=== PATIENT | female | born 1940 | race Caucasian/White ===

== ENCOUNTER 2017-11-26 08:15 | Day surgery (SDC) | payer MEDICARE, OTHER ==
[~2017-11-26 08:15] MED LIST: ALL DAY ALLERGY10 MG PO; AMIT75; ASPI325EC PO; CONEST.9 PO; Calcium 500 MG1 EACH PO; FISH1000 PO; Felodipine ER10 MG PO; LAVAP17G PO; LEVSOD50 PO; METO100ER PO; METO25ER PO; MONT10T PO; MSM1000 MG PO; Multiple Vitam1 EAC1 PO; Omeprazole20 M1; PRAVASTATIN SOD10 MG PO; Vitamin D2000 UNIT PO
== END 2017-11-26 22:37 | disposition home or self-care (01) ==
LOC: MOI US 08:15 → MOI MAM 08:45 → MOI US 08:45
PROC: 0HBT3ZX Excision of Right Breast, Percutaneous Approach, Diagnostic (ICD-10-PCS; principal; 2017-11-26)
DX: D24.1 Benign neoplasm of right breast (principal)
CPT/HCPCS: 19083; 77065; 88305; A4648

== ENCOUNTER 2018-08-23 10:47 | Day surgery (SDC) | payer MEDICARE, OTHER ==
[~2018-08-23] VITALS: Ht 154.9 cm; Wt 62.4 kg
== END 2018-08-23 12:55 | disposition home or self-care (01) ==
LOC: ORSCSDS 10:47
PROVIDERS: Internal Medicine Gastroenterology
PROC: 0D778ZZ Dilation of Stomach, Pylorus, Via Natural or Artificial Opening Endoscopic (ICD-10-PCS; principal; 2018-08-23 12:30)
PROC: 0D798ZZ Dilation of Duodenum, Via Natural or Artificial Opening Endoscopic (ICD-10-PCS; principal; 2018-08-23 12:30)
DX: K31.5 Obstruction of duodenum (principal); R11.2 Nausea with vomiting, unspecified; R63.4 Abnormal weight loss; R68.81 Early satiety; K26.9 Duodenal ulcer, unspecified as acute or chronic, without hemorrhage or perforation; K21.9 Gastro-esophageal reflux disease without esophagitis; I10 Essential (primary) hypertension; Z87.891 Personal history of nicotine dependence; Z79.899 Other long term (current) drug therapy
CPT/HCPCS: C1726; J7120

== ENCOUNTER 2018-09-06 08:13 | Day surgery (SDC) | payer MEDICARE, OTHER ==
[~2018-09-06] VITALS: Ht 154.9 cm; Wt 63.5 kg
== END 2018-09-06 10:00 | disposition home or self-care (01) ==
LOC: ORSCSDS 08:13
PROVIDERS: Internal Medicine Gastroenterology
PROC: 0D768ZZ Dilation of Stomach, Via Natural or Artificial Opening Endoscopic (ICD-10-PCS; principal; 2018-09-06 09:30)
PROC: 0D798ZZ Dilation of Duodenum, Via Natural or Artificial Opening Endoscopic (ICD-10-PCS; principal; 2018-09-06 09:30)
DX: R11.10 Vomiting, unspecified (principal); K22.2 Esophageal obstruction; K31.5 Obstruction of duodenum; R63.4 Abnormal weight loss; I10 Essential (primary) hypertension; E03.9 Hypothyroidism, unspecified; K21.9 Gastro-esophageal reflux disease without esophagitis; E78.5 Hyperlipidemia, unspecified; Z87.891 Personal history of nicotine dependence; Z79.899 Other long term (current) drug therapy
CPT/HCPCS: C1726

== ENCOUNTER → 2019-03-31 | Outpatient (CLI) | payer MEDICARE, OTHER | END | disposition home or self-care (01) | LOC: LAB SHORT 08:42 → PLD 08:42 | DX: B35.1 Tinea unguium (principal); L60.2 Onychogryphosis | CPT/HCPCS: 88305; 88312 ==

== ENCOUNTER → 2019-07-04 | Outpatient (CLI) | payer MEDICARE, OTHER ==
[~2019-07-04] MED LIST changes: +GABA300 PO; +LEVSOD50; -LEVSOD50 PO
[2019-07-04 14:53] LABS: Adenovirus F 40/41 Not Detected (NOT DETECT); Astrovirus Not Detected (NOT DETECT); Campylobacter Sp Not Detected (NOT DETECT); Cryptosporidium Not Detected (NOT DETECT); Cyclospora Cayetanensis Not Detected (NOT DETECT); E. Coli O157 Not Detected (NOT DETECT); Entamoeba Histolytica Not Detected (NOT DETECT); Enteroaggregative E. coli-EAEC Not Detected (NOT DETECT); Enteropathogenic E. coli-EPEC Not Detected (NOT DETECT); Enterotoxigenic E. coli-ETEC Not Detected (NOT DETECT); Giardia Lamblia Not Detected (NOT DETECT); Norovirus GI/GII Not Detected (NOT DETECT); Plesiomonas Shigelloides Not Detected (NOT DETECT); Rotavirus A Not Detected (NOT DETECT); Salmonella Sp Not Detected (NOT DETECT); Sapovirus Not Detected (NOT DETECT); Shiga Toxin-prod E. coli-STEC Not Detected (NOT DETECT); Shigella/Enteroin E. coli-EIEC Not Detected (NOT DETECT); Vibrio Cholerae Not Detected (NOT DETECT); Vibrio Sp Not Detected (NOT DETECT); Yersinia Enterocolitica Not Detected (NOT DETECT)
== END | disposition home or self-care (01) ==
LOC: LAB 07:15 → LAB SHORT 07:15
PROVIDERS: Internal Medicine Gastroenterology
DX: R19.7 Diarrhea, unspecified (principal)
CPT/HCPCS: 0097U; 83993

== ENCOUNTER 2019-07-21 09:14 | Day surgery (SDC) | payer MEDICARE, OTHER ==
[~2019-07-21] VITALS: Ht 154.9 cm; Wt 62.9 kg
== END 2019-07-21 11:10 | disposition home or self-care (01) ==
LOC: ORSCSDS 09:14
PROVIDERS: Internal Medicine Gastroenterology
PROC: 0DBL8ZX Excision of Transverse Colon, Via Natural or Artificial Opening Endoscopic, Diagnostic (ICD-10-PCS; principal; 2019-07-21 10:45)
PROC: 0DBM8ZX Excision of Descending Colon, Via Natural or Artificial Opening Endoscopic, Diagnostic (ICD-10-PCS; principal; 2019-07-21 10:45)
PROC: 0DBN8ZX Excision of Sigmoid Colon, Via Natural or Artificial Opening Endoscopic, Diagnostic (ICD-10-PCS; principal; 2019-07-21 10:45)
DX: R19.7 Diarrhea, unspecified (principal); D12.2 Benign neoplasm of ascending colon; K52.832 Lymphocytic colitis; K64.8 Other hemorrhoids; K57.30 Diverticulosis of large intestine without perforation or abscess without bleeding; K92.1 Melena; E03.9 Hypothyroidism, unspecified; M79.7 Fibromyalgia; E78.5 Hyperlipidemia, unspecified; I10 Essential (primary) hypertension; Z87.891 Personal history of nicotine dependence; Z79.899 Other long term (current) drug therapy
CPT/HCPCS: 88305; J2704; J7120

== ENCOUNTER 2019-10-02 13:37 | Inpatient (IN) | payer MEDICARE, OTHER ==
[~2019-10-02] VITALS: Ht 154.9 cm; Wt 62.7 kg
[~2019-10-02 13:37] MED LIST changes: -LEVSOD50; +LEVSOD50 PO
--- NOTE | 2019-10-07 06:19 | NUR ---
INTO SDS ADMISSION TO UNIT STARTED. Ambulatory in Day Surgery. Patient confirms NPO status and agrees with scheduled surgery. Lungs clear T/O to Auscultation.
--- NOTE | 2019-10-07 16:33 | NUR ---
POST OP: REPORT RECEIVED FROM EXERCISE EQUIPMENT REPAIR TECHNICIAN LIANE. PT TO UNIT AT ABOUT 1430. UPON ASSESSMENT PT IS DROWSY, BUT ORIENTED, VSS, ANSWERING QUESTIONS, AWAKENS EASILY. SURGICAL SITES WNL, SMALL AMT OOZING FROM X1 LAP SITE, REINFORCED WITH GAUZE AND BANDAIDE. PT REPORTS PAIN IS 7/10, WILL MEDICATE PER EMAR. [employer] ARCHITECT SET UP AND PT RECIEVED BOLUS DOSE OF 25MCG. AT ABOUT 1540 THIS RN IN ROOM TO DO VITAL SIGNS, ASSESSMENT FINDINGS INCLUDED PT SLEEPING, SHALLOW BREATHS, RR AT 10, PT SP02 87% ON 3L. O2 INCREASED TO 5L AND SPO2 REACHED 90%. AT THIS TIME PT WOKEN UP BY THIS RN AND ASKED TO DEEP BREATHE, AND INSTRUCTED ON I.S. USE. PT ALSO BOOSTED UP IN BED AND SITTING MORE UP-RIGHT. WHILE AWAKE SP02 AT 96% ON 5L AND RR 16. DR. CLARK MADE AWARE OF RR WHILE SLEEPING. CONTINUIOUS OXIMETRY ORDERED, WILL CTM.
--- NOTE | 2019-10-07 17:44 | NUR ---
SUMMARY: PT HAS BEEN AWAKE AND ALERT FOR SERVERAL HOURS NOW POST OP, TEXTING FAMILY ON HER PHONE. SEEMS TO BE IN NO ACUTE DISTRESS. REPORTS RECRUITING CONSULTANT MANAGING PAIN WELL. DENIES NAUSEA AND ABLE TO EAT ICE CHIPS. CONTINUING TO MONITOR PT RESPIRATORY STATUS. PT VERY RECEPTIVE TO I.S. INSTRUCTION AND IS USING VERY WELL, ABLE TO WEAN O2 TO 3L. CONTINIOUS OXIMETRY IN PLACE. SP02 IS 90% ON 3L WHILE PT IS AWAKE. NO ACUTE SAFETY CONCERNS AT THIS TIME. WILL CTM AND REPORT TO CALLI RN.
[2019-10-08 04:16] LABS: BASOPHILS ABSOLUTE AUTO 0.07 K/mm3 (0.00-0.23); BASOPHILS PERCENT AUTO 1 % (0-2); EOSINOPHILS ABSOLUTE AUTO 0.02 K/mm3 (0.00-0.68); EOSINOPHILS PERCENT AUTO 0 % (0-6); Hematocrit 36.2 % (33.0-51.0); Hemoglobin 11.6 g/dL (11.5-16.0); IMMATURE GRAN ABSOLUTE AUTO 0.04 K/mm3 (0.00-0.10); IMMATURE GRAN PERCENT AUTO 0 % (0-1); LYMPHOCYTES ABSOLUTE AUTO 1.64 K/mm3 (0.84-5.20); LYMPHOCYTES PERCENT AUTO 14 % (21-46); MONOCYTES ABSOLUTE AUTO 1.75 K/mm3 (0.16-1.47); MONOCYTES PERCENT AUTO 15 % (4-13); Mean Corpuscular HGB 32.5 pg (26.0-34.0); Mean Corpuscular Volume 101 fL (80-100); NEUTROPHILS ABSOLUTE AUTO 8.48 K/mm3 (1.96-9.15); NEUTROPHILS PERCENT AUTO 71 % (41-73); Platelet Count 276 K/mm3 (150-400); RDW Standard Deviation 48.8 fL (35.1-46.3); Red Blood Cell Count 3.57 M/mm3 (3.80-5.20)
[2019-10-08 04:35] LABS: Anion Gap 6 mmol/L (6-16); Blood Urea Nitrogen 9 mg/dL (8-24); Bun/Creatinine Ratio 13.9 (12.0-20.0); CO2, Blood 28 mmol/L (21-32); Calcium, Blood 7.7 mg/dL (8.5-10.1); Chloride, Blood 107 mmol/L (98-108); Creatinine, Blood 0.65 mg/dL (0.40-1.00); Glomerular Filtration Rate >60 (60-); Glucose, Blood 95 mg/dL (70-99); Potassium, Blood 4.1 mmol/L (3.5-5.5); Sodium, Blood 141 mmol/L (136-145)
--- NOTE | 2019-10-08 05:01 | NUR ---
SHIFT SUMMARY: PT POD #1 FOR SIGMOID COLECTOMY. ALEXANDRO WOUND VAC CDI WITH SMALL AMOUNT OF SHADOWING. HUERTAS DRAINING YELLOW URINE. PAIN MANAGED WITH FENTANYL COMMUNITY HEALTH EDUCATOR. PT OUT OF BED WITH ONE MINIMAL ASSIST AND FWW. SMALL AMOUNT OF BLOOD PER RECTUM THIS SHIFT. PINK IN COLOR WITHOUT CLOTS. IV ABX AND FLUIDS INFUSING PER EMAR. PT ON 3LO2 VIA NC. PT DESATING IN 80'S WITHOUT O2. ALL OTHER VS WNL.
--- NOTE | 2019-10-08 11:23 | NUR ---
Pt had been up in the chair, had a couple of bathroom visits and stated to us that she was not feeling great and wanted back to bed. Pt following instructions of P.T. well with her movements. Her IV began leaking, new site obtained after she was back in bed. Medicated for pain, binder loosened per patient request. Pt currently visiting on the phone.
--- NOTE | 2019-10-08 18:21 | NUR ---
SUMMARY VOIDING CLEAR YELLOW URINE. PAIN CONTROLLED WITH PO MEDS. VINCENT CLEAR LIQUIDS WITHOUT NAUSEA.
[2019-10-09 03:54] LABS: BASOPHILS ABSOLUTE AUTO 0.08 K/mm3 (0.00-0.23); BASOPHILS PERCENT AUTO 1 % (0-2); EOSINOPHILS ABSOLUTE AUTO 0.68 K/mm3 (0.00-0.68); EOSINOPHILS PERCENT AUTO 7 % (0-6); Hematocrit 37.6 % (33.0-51.0); IMMATURE GRAN ABSOLUTE AUTO 0.03 K/mm3 (0.00-0.10); IMMATURE GRAN PERCENT AUTO 0 % (0-1); LYMPHOCYTES ABSOLUTE AUTO 1.71 K/mm3 (0.84-5.20); LYMPHOCYTES PERCENT AUTO 17 % (21-46); MONOCYTES ABSOLUTE AUTO 1.28 K/mm3 (0.16-1.47); MONOCYTES PERCENT AUTO 13 % (4-13); Mean Corpuscular HGB 32.6 pg (26.0-34.0); Mean Corpuscular HGB Conc 31.9 g/dL (31.5-36.5); Mean Corpuscular Volume 102 fL (80-100); NEUTROPHILS ABSOLUTE AUTO 6.05 K/mm3 (1.96-9.15); NEUTROPHILS PERCENT AUTO 62 % (41-73); Platelet Count 289 K/mm3 (150-400); RDW Standard Deviation 49.1 fL (35.1-46.3); Red Blood Cell Count 3.68 M/mm3 (3.80-5.20); White Blood Cell Count 9.83 K/mm3 (4.00-11.30)
[2019-10-09 04:23] LABS: Anion Gap 5 mmol/L (6-16); Blood Urea Nitrogen 7 mg/dL (8-24); Bun/Creatinine Ratio 10.4 (12.0-20.0); CO2, Blood 31 mmol/L (21-32); Chloride, Blood 105 mmol/L (98-108); Creatinine, Blood 0.68 mg/dL (0.40-1.00); Glomerular Filtration Rate >60 (60-); Glucose, Blood 93 mg/dL (70-99); Potassium, Blood 3.3 mmol/L (3.5-5.5); Sodium, Blood 141 mmol/L (136-145)
--- NOTE | 2019-10-09 05:41 | NUR ---
SHIFT SUMMARY: SURAJ IS A&O X 4. SHE REPORTS ADEQUATE PAIN CONTROL WITH FENTANYL AND APAP. SHE STATES THAT THE FENTANYL CAUSES "WEIRD DREAMS". FWW TO THE BATHROOM, STANDBY ASSIST. O2 @ 2 LPM VIA NC D/T DESATURATION TO 88% WHEN SLEEPING, SATS MAINTAINED ABOVE 92% WITH SUPPLEMENTAL OXYGEN. SHE IS TOLERATING CLEAR LIQUIDS WELL, DENIES NAUSEA. STATES THAT SHE HAS PASSED A SMALL AMOUNT OF FLATUS AND SMEAR OF STOOL. SHE IS ABLE TO MAKE HER NEEDS KNOWN. CONTINUOUS BIOX IN PLACE. VSS. NO ACUTE EVENTS OVERNIGHT. SHE IS LYING IN BED WITH HER CALL LIGHT IN REACH. WILL REPORT TO DAY SHIFT RN.
--- NOTE | 2019-10-09 17:40 | NUR ---
SHIFT SUMMARY PT A&OX4, VSS, POD2 SIG COLECTOMY, ALEXANDRO WNL, STERIS CDI, PASSING FLATUS AND SMALL LIQ BM TODAY. PAIN MANAGED WITH 5 MG OXY AND TYLENOL. VINCENT PO FULL LIQUID DIET, DENIES N&V. AMB W/FWW TO BRP AND IN HALLWAY; UP TO CHAIR T/O SHIFT. VOIDING WELL. WILL REPORT TO ONCOMING NOC RN.
--- NOTE | 2019-10-10 06:35 | NUR ---
SHIFT SUMMARY: SURAJ IS A&OX4, TOLERATING FULL LIQUIDS WELL, PAIN CONTROLLED WITH APAP OVERNIGHT, AND INDEPENDENT TO THE BATHROOM, NO DIFFICULTY URINATING. SHE IS PASSING FLATUS, REPORTS SMALL BM YESTERDAY. VSS, NO ACUTE EVENTS OVERNIGHT. SHE IS ABLE TO MAKE HER NEEDS KNOWN. SHE IS LYING IN BED WITH HER CALL LIGHT IN REACH. WILL REPORT TO DAY SHIFT RN.
[2019-10-10] MEDS ORDERED: MIRALAX17 GM PO (10:37)
[2019-10-10] MEDS ORDERED: ACET325 PO (10:37)
[2019-10-10] MEDS ORDERED: ROXICODONE5 MG PO (10:38)
[2019-10-10] MEDS ORDERED: ONDA4ODT MM (10:45)
--- NOTE | 2019-10-10 12:45 | NUR ---
SHIFT SUMMARY PT A&OX4, VSS, LEFT FLOOR VIA WC WITH ALL PERSONAL POSSESSIONS INCLUDING DISCHARGE PACKET AND 1 NARC SCRIPT AND 1 ZOFRAN SCRIPT. PICKED UP PT AT [facility]. DC INSTRUCTIONS PROVIDED. PT REP UNDERSTANDING THOSE INSTRUCTIONS INCLUDING WHEN TO CALL THE SURGEON, FU APPT, SHORT FREQ AMBULATION, S/SX INFECTION/DVT/PE, DEEP BREATHING AND I.S. IV DC'D.
== END 2019-10-10 11:47 | disposition home or self-care (01) | DRG 331 ==
LOC: SURS 10-07 05:58 → PRE IP 10-07 07:30 → SURS 10-07 14:37
PROVIDERS: Surgery; ADMIT Surgery
PROC: 8E0W8CZ Robotic Assisted Procedure of Trunk Region, Via Natural or Artificial Opening Endoscopic (ICD-10-PCS; 2019-10-07)
PROC: 0DTN0ZZ Resection of Sigmoid Colon, Open Approach (ICD-10-PCS; principal; 2019-10-07 07:30)
DX: K57.30 Diverticulosis of large intestine without perforation or abscess without bleeding (principal); K63.9 Disease of intestine, unspecified; I10 Essential (primary) hypertension; K21.9 Gastro-esophageal reflux disease without esophagitis
CPT/HCPCS: 36415; 80048; 85025; 86850; 86900; 86901; 88307; 94762; 97110; 97116; 97162; A9270; A9270-GY; J0690; J1100; J1650; J1885; J2250; J2270; J2405; J2550; J2704; J2765; J3010; J7120

== ENCOUNTER → 2020-04-21 | Outpatient (CLI) | payer MEDICARE, OTHER ==
[~2020-04-21] MED LIST changes: +ACET325 PO; +MIRALAX17 GM PO; +ONDA4ODT MM; +ROXICODONE5 MG PO
[2020-04-21 10:38] LABS: Source, Urine Clean Catch
[2020-04-21 12:26] LABS: Appearance, Urine Cloudy (Clear); Bilirubin, Urine Neg (Neg); Blood, Urine 2+ (Neg); Color, Urine Yellow (P-Yellow); Glucose Qualitative, Urine Neg (Neg); Ketones, Urine Neg (Neg); Leukocyte Esterase, Urine 3+ (Neg); Nitrite, Urine Pos (Neg); Protein, Urine 1+ (Neg); Specific Gravity, Urine 1.015 (1.003-1.022); Urobilinogen, Urine NORM (Normal)
[2020-04-21 12:52] LABS: White Blood Cells, Urine TNTC /hpf (0-5)
[2020-04-21 12:54] LABS: Bacteria Many /hpf; Squamous Epithelial Cells Many /hpf (Few)
[2020-04-21 12:55] LABS: Transitional Epithelial Cells Mod /hpf (0-Rare)
== END | disposition home or self-care (01) ==
LOC: LAB 10:36 → LAB SHORT 10:36
PROVIDERS: Internal Medicine
DX: N39.0 Urinary tract infection, site not specified (principal)
CPT/HCPCS: 81001

== ENCOUNTER → 2022-06-24 | Outpatient (CLI) | payer MEDICARE, OTHER ==
[2022-06-24 12:02] LABS: BASOPHILS ABSOLUTE AUTO 0.04 K/mm3 (0.00-0.23); BASOPHILS PERCENT AUTO 1 % (0-2); EOSINOPHILS ABSOLUTE AUTO 0.25 K/mm3 (0.00-0.68); EOSINOPHILS PERCENT AUTO 4 % (0-6); Hematocrit 41.2 % (33.0-51.0); Hemoglobin 13.7 g/dL (11.5-16.0); IMMATURE GRAN ABSOLUTE AUTO 0.04 K/mm3 (0.00-0.10); IMMATURE GRAN PERCENT AUTO 1 % (0-1); LYMPHOCYTES PERCENT AUTO 25 % (21-46); MONOCYTES ABSOLUTE AUTO 0.93 K/mm3 (0.16-1.47); MONOCYTES PERCENT AUTO 13 % (4-13); Mean Corpuscular HGB 30.9 pg (26.0-34.0); Mean Corpuscular HGB Conc 33.3 g/dL (31.5-36.5); Mean Corpuscular Volume 93 fL (80-100); Mean Platelet Volume 9.5 fL (9.1-12.4); NEUTROPHILS ABSOLUTE AUTO 4.06 K/mm3 (1.96-9.15); NEUTROPHILS PERCENT AUTO 57 % (41-73); Platelet Count 314 K/mm3 (150-400); RDW Coefficient Variation 13.5 % (11.7-14.2); RDW Standard Deviation 46.2 fL (35.1-46.3); Red Blood Cell Count 4.43 M/mm3 (3.80-5.20); White Blood Cell Count 7.12 K/mm3 (4.00-11.30)
[2022-06-24 12:18] LABS: Albumin, Blood 3.6 g/dL (3.4-5.0); Bilirubin, Total 0.3 mg/dL (0.1-1.0); Bun/Creatinine Ratio 19.5 (12.0-20.0); Calcium, Blood 8.6 mg/dL (8.5-10.1); Creatinine, Blood 0.82 mg/dL (0.40-1.00); Globulin, Blood 3.5 g/dL (2.2-4.0); Potassium, Blood 3.2 mmol/L (3.5-5.5); Total Protein, Blood 7.1 g/dL (6.4-8.2)
== END ==
LOC: LAB 11:57 → LAB SHORT 11:57
PROVIDERS: Physician Assistant Medical
DX: R11.2 Nausea with vomiting, unspecified (principal)
CPT/HCPCS: 80053; 85025

== ENCOUNTER 2023-08-16 09:33 | Day surgery (SDC) | payer MEDICARE, OTHER ==
[~2023-08-16 09:33] MED LIST changes: +Acerola C500 MG; +Calcium Acetat667 MG; +FELODIPINE ER10 M1; +FURO20; +MONT10T; +OMEGA ESSE1400 MG/5; +PRESERVISION A1 EAC2; +VITAMIN B125000 MC1; +ZINC15
[2023-08-16] MEDS ORDERED: Lidocaine HCl 4% Cream 5 GM ONE (13:01)
== END 2023-08-16 22:58 | disposition home or self-care (01) ==
LOC: WOUND 09:33
DX: S81.851A Open bite, right lower leg, initial encounter (principal); W55.01XA Bitten by cat, initial encounter; Z87.891 Personal history of nicotine dependence
CPT/HCPCS: A9270; G0463

== ENCOUNTER 2023-08-23 01:35 | Day surgery (SDC) | payer MEDICARE, OTHER ==
[2023-08-23] MEDS ORDERED: Lidocaine HCl 4% Cream 5 GM ONE (15:30)
== END 2023-08-23 22:56 | disposition home or self-care (01) ==
LOC: WOUND 01:35
PROC: 0JBN0ZZ Excision of Right Lower Leg Subcutaneous Tissue and Fascia, Open Approach (ICD-10-PCS; principal; 2023-08-23)
DX: S81.851D Open bite, right lower leg, subsequent encounter (principal); I11.0 Hypertensive heart disease with heart failure; I50.30 Unspecified diastolic (congestive) heart failure; E03.9 Hypothyroidism, unspecified; W55.01XD Bitten by cat, subsequent encounter
CPT/HCPCS: A6196; A9270

== ENCOUNTER 2023-08-30 03:23 | Day surgery (SDC) | payer MEDICARE, OTHER | END 2023-08-30 22:48 | disposition home or self-care (01) | LOC: WOUND 03:23 | DX: S81.851S Open bite, right lower leg, sequela (principal); W55.01XS Bitten by cat, sequela; I11.0 Hypertensive heart disease with heart failure; I50.30 Unspecified diastolic (congestive) heart failure; E03.9 Hypothyroidism, unspecified | CPT/HCPCS: A6213; G0463 ==

== ENCOUNTER 2023-11-07 16:39 | Inpatient (IN) | payer MEDICARE, OTHER ==
[~2023-11-07] VITALS: Ht 152.4 cm; Wt 71.7 kg
[2023-11-07 17:12] LABS: BASOPHILS ABSOLUTE AUTO 0.06 K/mm3 (0.00-0.23); BASOPHILS PERCENT AUTO 0 % (0-2); EOSINOPHILS ABSOLUTE AUTO 0.28 K/mm3 (0.00-0.68); EOSINOPHILS PERCENT AUTO 2 % (0-6); Hematocrit 31.9 % (33.0-51.0); Hemoglobin 10.7 g/dL (11.5-16.0); IMMATURE GRAN ABSOLUTE AUTO 0.17 K/mm3 (0.00-0.10); IMMATURE GRAN PERCENT AUTO 1 % (0-1); LYMPHOCYTES ABSOLUTE AUTO 1.84 K/mm3 (0.84-5.20); LYMPHOCYTES PERCENT AUTO 10 % (21-46); MONOCYTES ABSOLUTE AUTO 2.69 K/mm3 (0.16-1.47); MONOCYTES PERCENT AUTO 14 % (4-13); Mean Corpuscular HGB Conc 33.5 g/dL (31.5-36.5); Mean Corpuscular Volume 93 fL (80-100); Mean Platelet Volume 9.6 fL (9.1-12.4); NEUTROPHILS ABSOLUTE AUTO 13.92 K/mm3 (1.96-9.15); NEUTROPHILS PERCENT AUTO 73 % (41-73); Platelet Count 391 K/mm3 (150-400); RDW Coefficient Variation 13.7 % (11.7-14.2); RDW Standard Deviation 46.5 fL (35.1-46.3); Red Blood Cell Count 3.45 M/mm3 (3.80-5.20); White Blood Cell Count 18.96 K/mm3 (4.00-11.30)
[2023-11-07 17:40] LABS: Albumin, Blood 2.6 g/dL (3.4-5.0); Albumin/Globulin Ratio 0.6 (0.8-1.8); Bilirubin, Total 0.4 mg/dL (0.1-1.0); Bun/Creatinine Ratio 17.6 (12.0-20.0); Calcium, Blood 9.1 mg/dL (8.5-10.1); Creatinine, Blood 0.74 mg/dL (0.40-1.00); Globulin, Blood 4.5 g/dL (2.2-4.0); Potassium, Blood 3.7 mmol/L (3.5-5.5); Total Protein, Blood 7.1 g/dL (6.4-8.2)
[2023-11-07 18:28] LABS: Influenza A, PCR NEGATIVE (NEGATIVE); Influenza B, PCR NEGATIVE (NEGATIVE); Resp Syncytial Virus, PCR NEGATIVE (NEGATIVE); SARS-Cov-2 (COVID-19) PCR, MMC NEGATIVE (NEGATIVE)
[2023-11-07] MEDS ORDERED: Azithromycin 500 MG in NS 250 ML IV ONE (21:25)
[2023-11-07] MEDS ORDERED: CefTRIAXone Sodium 2,000 MG in NS 100 ML IV ONE (21:25)
[2023-11-07] MEDS ORDERED: NS 1,000 ML IV SCH (21:30)
[2023-11-07] MEDS ORDERED: Morphine Sulfate 4 MG/1 ML Injection IV ONE (21:30)
[2023-11-07] MEDS ORDERED: Acetaminophen 325 MG TABLET PO PRN (22:10)
[2023-11-07] MEDS ORDERED: Ipratropium/Albuterol SulF 2.5-0.5MG/3 ML Amp INH ONE (23:45)
[2023-11-08] VITALS (26 sets, daily range): BP systolic 93–141; BP diastolic 51–91
[2023-11-08 00:06] LABS: Base Excess Venous -1.4 mmol/L; Bicarbonate Venous 23.1 mmol/L (24.0-30.0); PCO2 Venous 44.8 mmHg (38-42); pH Blood Venous 7.34 (7.34-7.37)
[2023-11-08] MEDS ORDERED: Naloxone HCl 0.4MG / ML 1ML Vial IV PRN (02:25)
[2023-11-08] MEDS ORDERED: OxyCODONE HCL 5 MG TAB PO PRN (02:25)
[2023-11-08] MEDS ORDERED: Morphine Sulfate 4 MG/1 ML Injection IV PRN (02:30)
[2023-11-08] MEDS ORDERED: Amitriptyline HCl 25 MG Tab PO SCH (03:00)
[2023-11-08 04:24] LABS: BASOPHILS ABSOLUTE AUTO 0.06 K/mm3 (0.00-0.23); BASOPHILS PERCENT AUTO 0 % (0-2); EOSINOPHILS ABSOLUTE AUTO 0.07 K/mm3 (0.00-0.68); EOSINOPHILS PERCENT AUTO 0 % (0-6); Hematocrit 28.7 % (33.0-51.0); Hemoglobin 9.2 g/dL (11.5-16.0); IMMATURE GRAN ABSOLUTE AUTO 0.16 K/mm3 (0.00-0.10); IMMATURE GRAN PERCENT AUTO 1 % (0-1); LYMPHOCYTES ABSOLUTE AUTO 1.34 K/mm3 (0.84-5.20); LYMPHOCYTES PERCENT AUTO 7 % (21-46); MONOCYTES ABSOLUTE AUTO 2.39 K/mm3 (0.16-1.47); MONOCYTES PERCENT AUTO 13 % (4-13); Mean Corpuscular HGB 30.5 pg (26.0-34.0); Mean Corpuscular HGB Conc 32.1 g/dL (31.5-36.5); Mean Corpuscular Volume 95 fL (80-100); Mean Platelet Volume 9.5 fL (9.1-12.4); NEUTROPHILS ABSOLUTE AUTO 14.08 K/mm3 (1.96-9.15); NEUTROPHILS PERCENT AUTO 78 % (41-73); Platelet Count 375 K/mm3 (150-400); RDW Coefficient Variation 13.9 % (11.7-14.2); RDW Standard Deviation 48.2 fL (35.1-46.3); Red Blood Cell Count 3.02 M/mm3 (3.80-5.20)
[2023-11-08 04:44] LABS: Albumin, Blood 2.1 g/dL (3.4-5.0); Albumin/Globulin Ratio 0.5 (0.8-1.8); Bilirubin, Total 0.4 mg/dL (0.1-1.0); Bun/Creatinine Ratio 15.7 (12.0-20.0); Creatinine, Blood 0.7 mg/dL (0.40-1.00); Globulin, Blood 3.9 g/dL (2.2-4.0); Potassium, Blood 3.7 mmol/L (3.5-5.5)
[2023-11-08] MEDS ORDERED: Furosemide 10 MG / ML 2ML Vial IV ONE (05:15)
[2023-11-08] MEDS ORDERED: Albuterol 2.5 MG/3 ML VIAL INH PRN (05:20)
[2023-11-08] MEDS ORDERED: Levothyroxine Sodium 0.05 MG Tab PO SCH (06:00)
[2023-11-08] MEDS ORDERED: Omeprazole 20 MG CapCR PO SCH (06:00)
--- NOTE | 2023-11-08 06:36 | NUR ---
0200 Pt arrived on unit via gurney from ED with RN in attendance. Pt on NRB mask at this time and does appear to be tiring out. RT at bedside, will bring BiPap to bedside for pt. Oriented to room and unit per unit standards. Shift plan of care reviewed with pt and all questions answered. Pt reports significant pain relief with MS IVP 4mg. Has been able to rest well on BiPap and appears comfortable. Requiring FiO2 of 55% 02/19 settings to keep O2 Sat >92%. Called MD at [address] scan negative, high O2 requirement and coarse crackles in bases and no UOP. Lasix 20mg IVP x1 ordered. Please see assessment for additional details. No further complaints or concerns at this time, will continue to monitor
[2023-11-08] MEDS ORDERED: Polyethylene Glycol 3350 17 gm PO PRN (07:30)
[2023-11-08] MEDS ORDERED: Gabapentin 300 MG Cap PO SCH (09:00)
[2023-11-08] MEDS ORDERED: Empagliflozin 10 MG TAB PO SCH (09:00)
[2023-11-08] MEDS ORDERED: Metoprolol Succinate 25 MG TABCR PO SCH (09:00)
[2023-11-08] MEDS ORDERED: Furosemide 20 MG Tab PO SCH (09:00)
[2023-11-08] MEDS ORDERED: Enoxaparin 40 MG/0.4 ML SYR SC SCH (09:00)
[2023-11-08] MEDS ORDERED: Cholecalciferol 1000 Unit Tablet (=25MCG) PO SCH (09:00)
[2023-11-08] MEDS ORDERED: Lactobacil 2-S.Thermo-Bifido 1 1 Cap PO SCH (09:00)
[2023-11-08] MEDS ORDERED: Pravastatin Sodium 20 MG Tab PO SCH (09:00)
[2023-11-08] MEDS ORDERED: Felodipine 2.5 MG TAB.ER.24H PO SCH (09:00)
[2023-11-08] MEDS ORDERED: Docusate Sodium 100 MG Cap PO SCH (09:00)
--- NOTE | 2023-11-08 09:50 | NUR ---
I SPOKE WITH THE PT'S SISTER JANEEN AND UPDATED HER ON CARE. JANEEN STATED SHE IS RETIRED AND ANT WORKS. IF WE NEED TO GET AHOLD OF A FAMILY MEMBER URGENTLY THAT SHE IS ALWAYS ON HER PHONE. SHAMA NUMBER OF [phone]
--- NOTE | 2023-11-08 11:16 | NUR ---
MORNING SUMMARY PT HAS HAD INCREASED OXYGEN DEMAND THIS MORNING. AT THE START OF THE SHIFT SHE WAS ON THE BIPAP AT 14/8 @ 50%. SP02 87-92%. SHE IS CURRENTLY ON 14/8 @ 75% W/ SP02 90-95%. ANY MOVMENT OR EPISODES OF SHARP RIGHT FLANK PAIN HER SP02 DROPPS. AT THIS TIME I AM ABLE TO STILL GIVE THE PT ORAL MEDICATIONS, BUT SHE HAS TO HAVE 100% OXYGEN ON THE BIPAP FOR TWO MINUTES BEFORE TAKING OFF THE MASK FOR PILLS. SHE CAN ONLY BE OFF OF THE MASK LESS THEN A MINUTE. THE PT HAS HAD A FEW SOFT BLOOD PRESSURES TODAY BUT IT REMAINS STABLE. ON TELE SHE HAS BEEN SR/ST 90'S-120'S. HER PAIN IN HER RIGHT FLANK IS HARD TO CONTROL. SHE HAS BEEN MEDICATED WITH MORPHINE AND OXYCODONE PER EMAR. THE PT HAS THE MOST RELIEF FROM PAIN WHEN ASLEEP. I HAVE DISCUSSED HER CONDITION WITH THE CHARGE NURSE AND ICU IS AWARE OF THE PT.
--- NOTE | 2023-11-08 13:57 | NUR ---
I CALLED DR. BAILEY ABOUT THE PT'S INCREASED OXYGEN NEEDS, TACHYPEANIA IN THE 30'S-40'S, AND SHARED CONCERNS/RECCOMENDATIONS FROM RT OF A PULM CONSULT AND REPEAT XRAY. HE STATED HE WILL PUT IN SOME ORDERS.
--- NOTE | 2023-11-08 14:41 | NUR ---
AFTER CALLING DR. BAILEY, HE OREDERED A PULM CONSULT AND ICU TX ORDERS. THE PT WAS TRANSFERED TO ROOM ICU 04 AND REPORT WAS GIVEN TO JOHN RM. I CALLED JANEEN, THE PT'S SISTER, AND UPDATED HER THAT THE PT WAS MOVED TO ICU. THEY ARE ON THEIR WAY UP FROM [place] AND SAID THEY SHOULD ARRIVE AROUND 1930 TODAY. NO FURTHER UPDATES AT THIS TIME.
--- NOTE | 2023-11-08 14:57 | NUR ---
PT ARRIVED TO ICU, ALERT AND ON BIPAP. SHE IS ANSWERING QUESTIONS APPROPRIATELY AND STATES SHE HAS SOME PAIN IN HER LUMBAR REGION. SHE HAS BILAT PIV'S BOTH FLUSH WELL. CALL LIGHT GIVEN. TO SEE.
[2023-11-08] MEDS ORDERED: MetroNIDAZOLE 500MG/NS 100 ml 100 ML IV SCH (16:00)
[2023-11-08 16:25] LABS: Automated BF WBC Count 6.302 K/mm3 (0-999)
[2023-11-08 16:31] LABS: Body Fluid WBC Count 6302 /mm3 (0-999); RBC Count, Body Fluid 30000 /mm3 (0-0)
[2023-11-08 16:35] LABS: pH, Body Fluid 7.9
[2023-11-08] MEDS ORDERED: NS 250 ML IV PRN (16:40)
[2023-11-08 16:46] LABS: Glucose, Body Fluid 91 mg/dL; Triglycerides, Body Fluid 48 mg/dL
[2023-11-08 16:50] LABS: Lactate Dehydrogenase, Body Fl 1301 U/L; Protein, Body Fluid 4.5 g/dL
[2023-11-08 17:16] LABS: Total Cell Count, Body Fluid 100
--- NOTE | 2023-11-08 17:16 | NUR ---
SUMMARY OF EVENTS: PT WAS CONSENTED FOR PLACEMENT OF A CHEST TUBE, BEDSIDE ULTRASOUND WAS PERFORMED BY AFTER PT WAS POSITIONED. SHE THEN HAD THE CHEST TUBE PLACED, ONCE PLACED AN XRAY WAS TAKEN. THEN THE CHEST TUBE WAS REPOSITIONED. ANOTHER CHEST XRAY WAS TAKEN AND THEN THE PATIENT'S CHEST TUBE WAS REMOVED. PT WAS THEN POSITIONED SEATED AND LEANING FORWARD OVER THE TOP OF THE BEDSIDE TABLE. SHE THEN HAD ANOTHER ULTRASOUND PERFORMED BY . HE CHOSE NOT TO PERFORM THORACENTESIS AT THIS TIME. DRESSING WAS PLACED OVER THE POSTERIOR RIGHT LUNG. SHE WAS THEN REPOSITIONED BACK IN BED. SHE WAS REMOVED FROM THE BIPAP AND PLACED ON HIFL NC @ 60L/80%. SHE WAS THEN X-RAYED AGAIN. SHE WAS 93% AND AFTER XRAY SATS WERE 88-89%. SHE IS BEING RETURNED TO BIPAP, SAME SETTINGS.
[2023-11-08 17:20] LABS: Appearance, Body Fluid Hazy (Clear); Color, Body Fluid Yellow (None-Yellow)
--- NOTE | 2023-11-08 18:00 | NUR ---
DISCUSSED DOING A "SURGICAL" CHEST TUBE WITH THE PATIENT AND PT SAID, "NO". SHE REMAINS VERY SLEEPY FROM THE MORPHINE DOSE THAT WAS GIVEN WHILE SHE WAS UNDERGOING THE PLACEMENT OF THE PIGTAIL CHEST TUBE IN THE POSTERIOR RIGHT LUNG. SHE IS ON THE BIPAP 14/8 75%, SATS 97% AND HR 102.
--- NOTE | 2023-11-08 19:00 | NUR ---
ASSUMED CARE ASSUMED CARE OF PATIENT. REMAINS ON BIPAP 19/02, BUR 14, FIO2 75%. ROUSES TO VERBAL STIMULI. SLOW VERBAL RESPONSE. FOLLOW SIMPLE COMMANDS. DENIES C/O PAIN AT THIS TIME. PT TACHYPNEIC WHEN AWAKE. MONITOR SHOWS SR, RATE 90s. BP STABLE. DRSG D/I TO RIGHT POSTERIOR CHEST. PUREWICK IN PLACE. SEE SHIFT ASSESSMENT FOR FULL ASSESSMENT.
[2023-11-08] MEDS ORDERED: Montelukast Sodium 10 MG Tab PO SCH (21:00)
[2023-11-08] MEDS ORDERED: CefTRIAXone Sodium 1,000 MG in NS 100 ML IV SCH (21:00)
[2023-11-08] MEDS ORDERED: Docusate Sodium/Senna 1 Tab PO SCH (21:00)
[2023-11-08] MEDS ORDERED: Azithromycin 500 MG in NS 250 ML IV SCH (21:00)
[2023-11-09] VITALS (35 sets, daily range): BP systolic 91–145; BP diastolic 57–117
[2023-11-09 03:31] LABS: Hematocrit 32.4 % (33.0-51.0); Hemoglobin 10.4 g/dL (11.5-16.0); Mean Corpuscular HGB 30.8 pg (26.0-34.0); Mean Corpuscular HGB Conc 32.1 g/dL (31.5-36.5); Mean Corpuscular Volume 96 fL (80-100); Mean Platelet Volume 9.2 fL (9.1-12.4); Platelet Count 450 K/mm3 (150-400); RDW Coefficient Variation 14.3 % (11.7-14.2); RDW Standard Deviation 50.5 fL (35.1-46.3); Red Blood Cell Count 3.38 M/mm3 (3.80-5.20); White Blood Cell Count 23.62 K/mm3 (4.00-11.30)
[2023-11-09 03:50] LABS: Albumin, Blood 2.2 g/dL (3.4-5.0); Anion Gap 14 mmol/L (3-11); Blood Urea Nitrogen 22 mg/dL (8-24); Bun/Creatinine Ratio 16.9 (12.0-20.0); CO2, Blood 23 mmol/L (21-32); Calcium, Blood 8.7 mg/dL (8.5-10.1); Chloride, Blood 107 mmol/L (98-108); Glomerular Filtration Rate 41 (60-); Glucose, Blood 110 mg/dL (70-99); Magnesium, Blood 1.7 mg/dL (1.6-2.4); Phosphorus, Blood 4.7 mg/dL (2.5-4.9); Potassium, Blood 4.1 mmol/L (3.5-5.5); Sodium, Blood 140 mmol/L (136-145)
--- NOTE | 2023-11-09 06:31 | NUR ---
SHIFT SUMMARY PT STAYED ON BIPAP 19/02 WITH FIO2 75% UNTIL 299, THEN CHANGED TO AIRVO 50L/90%. SATS STABLE. PT IS TACHYPNEIC AND DYSPNEIC WITH EXERTION. MEDICATED WITH MS 2MG IV X 1 DOSE EARLY IN SHIFT FOR DYSPNEA WITH GOOD RELIEF. MEDICATED WITH ROXICODONE 5MG PO X 1 DOSE THIS AM FOR C/O RIGHT POSTERIOR CHEST/BACK PAIN 03/18. BP STABLE. MONITOR SHOWS NSR-ST, RATE 90s-120s DURING NOC. TOLERATING SMALL SIPS OF WATER- PT IS AN ASPIRATION RISK D/T RESPIRATORY STATUS AND HX OF DYSPHAGIA. PUREWICK IN PLACE. INCONTINENT OF URINE X 1. RIGHT UPPER BACK DRSG D/I. WILL REPORT TO ONCOMING RN WHEN AVAILABLE.
[2023-11-09] MEDS ORDERED: Metoprolol Succinate 50 MG TABCR PO SCH (09:00)
[2023-11-09] MEDS ORDERED: CefTRIAXone Sodium 2,000 MG in NS 100 ML IV SCH (10:00)
--- NOTE | 2023-11-09 12:18 | NUR ---
LENGTHY DISCUSSION HAD WITH SURAJ, HER SISTER JANEEN, BROTHER IN LAW AND NIECE IN REGARDS TO PLAN OF CARE, TREATMENT OPTIONS AND BEST PRACTICES. PT AND FAMILY AGREE TO TRANSFER TO FACILITY FOR VATS PROCEDURE TO "CLEAN OUT HER LUNG". SHE WAS ON AIRVO AND DURING DISCUSSION SHE WENT TO THE MID 70'S ON HER BIOX, IN ROOM. PT TRANSITIONED BACK TO BIPAP WITH INCREASE IN HER SATURATIONS. PT IS NOW TRYING TO REST.
[2023-11-09 17:40] LABS: Vancomycin, Random 17.1 ug/mL
[2023-11-09] MEDS ORDERED: Vancomycin HCL 1,250 MG in NS 250 ML IV SCH (18:00)
--- NOTE | 2023-11-09 18:09 | NUR ---
SURAJ HAS BEEN ON AIRVO AND ON BIPAP T/O THE DAY. SHE RUNS 14/8 85% ON THE BI- PAP AND AIRVO 50L 90%. SHE DOES GET TIRED AND INCREASED WORK OF BREATHING AFTER BEING ON THE AIRVO FOR A WHILE. SHE THEN RETURNS TO THE MASK WITH [employer]. FAMILY VISITED FOR QUITE A WHILE THIS AFTERNOON. UPDATED ON PLAN TO TRANSFER TO [facility] TOMORROW TO SERVICE IN ICU WITH SURGEON DR.NICHOLAS MILLER PERFORMING THE SURGERY ON SUNDAY. BED ASSIGNMENT EXPECTED TOMORROW AND THEN ARRANGEMENTS MADE TO TRANSPORT VIA GROUND AT THAT TIME. QUESTIONS BY PT AND SISTER ANSWERED AFTER DISCUSSION. SPOKE WITH SEVERAL TIMES TODAY. MEDICATED FOR C/O PAIN THIS EVENING WITH HER DINNER. MIN OUTPUT FROM [employer], PT HAS HAD MIN INPUT WITH MILK AND WATER T/O THE DAY.
[2023-11-09] MEDS ORDERED: Vancomycin HCL 1,000 MG in NS 100 ML IV ONE (18:10)
--- NOTE | 2023-11-09 19:22 | NUR ---
ASSUMED CARE OF PATIENT AT 1900. REPORT RECEIVED FROM SUJEY LOPEZ. PT SITTING UP IN BED TALKING WITH RT. ON AIRVO WITH 60L + 82%. DENIES SOB AT THIS TIME. SHE REPORTS PAIN IN HER R BACK AND R WAIST AREA AT A 7/10. SEE SHIFT ASSESSMENT FOR FULL DETAILS.
[2023-11-10] VITALS (23 sets, daily range): BP systolic 95–157; BP diastolic 60–107
--- NOTE | 2023-11-10 06:14 | NUR ---
SHIFT SUMMARY PT REMAINED A&O X 4 T/O ENTIRETY OF SHIFT. ABLE TO FOLLOW COMMANDS, MAKE PURPOSEFUL MOVEMENTS, AND MAKE NEEDS KNOWN. AFEBRILE. REPORTED PAIN OF R POSTERIOR, R CHEST, AND R WAIST. MEDICATED PER EMAR WITH GOOD BENEFIT. CONTINUOUS CARDIAC MONITORING IN PLACE SHOWING SINUS RHYTHM WITH HR IN 80'S-100'S. SBP IN 90'S-110'S. ON AIRVO 60L/82% T/O MOST OF THE EVENING. BIPAP PLACED AT APPROXIMATELY 0530 WITH SETTINGS AT 14/12/85%. NO BM THIS SHIFT. REPORTS DECREASED APPETITE, TOLERATED SIPS OF WATER WELL. PUREWICK IN PLACE WITH MINIMAL URINE OUTPUT THIS SHIFT. WILL CONTINUE TO MONITOR AND REPORT TO ONCOMING RN.
[2023-11-10 07:33] LABS: Hematocrit 31.4 % (33.0-51.0); Hemoglobin 10.4 g/dL (11.5-16.0); Mean Corpuscular HGB 31.2 pg (26.0-34.0); Mean Corpuscular HGB Conc 33.1 g/dL (31.5-36.5); Mean Corpuscular Volume 94 fL (80-100); Mean Platelet Volume 8.9 fL (9.1-12.4); Platelet Count 450 K/mm3 (150-400); RDW Coefficient Variation 14.4 % (11.7-14.2); RDW Standard Deviation 49.7 fL (35.1-46.3); Red Blood Cell Count 3.33 M/mm3 (3.80-5.20); White Blood Cell Count 19.24 K/mm3 (4.00-11.30)
[2023-11-10 07:49] LABS: Bun/Creatinine Ratio 15.5 (12.0-20.0); Calcium, Blood 8.8 mg/dL (8.5-10.1); Creatinine, Blood 2.91 mg/dL (0.40-1.00); Potassium, Blood 4.3 mmol/L (3.5-5.5)
--- NOTE | 2023-11-10 08:08 | NUR ---
AM NOTE... ASSUMED CARE OF PT AT 0700, PT IS A&Ox4. SHE IS ON BIPAP AT 12/8 AND 85% WITH O2 SATS LOW 90'S. L/S CLEAR IN THE UPPER LOBES FINE CRACKLES NOTED IN THE RLL AND DIM IN THE LLL. SHE IS IN SINUS TACH 100'S-110'S BP STABLE. 2+ EDEMA IS NOTED TO HER BLE. PT WAS CHANGED OVER TO AIRVO AT 60L AND 82% WITH O2 SATS IN THE LOW 90'S. PURWICK IN PLACE. PT'S UO IS LOW PER NOC SHIFT RN REPORT. PLANS TO TRANSFER TO HIGHER LEVEL OF CARE. CALL LIGHT IN REACH WILL CONTINUE TO MONITOR.
[2023-11-10] MEDS ORDERED: Lactated Ringer's 1,000 ML IV SCH ×2 (09:40→18:00)
[2023-11-10] MEDS ORDERED: Lidocaine 2% Jelly Uro-Jet UR ONE (09:55)
[2023-11-10 10:28] LABS: Source, Urine Foley catheter
[2023-11-10 10:49] LABS: Appearance, Urine Clear (Clear); Bilirubin, Urine Neg (Neg); Blood, Urine 1+ (Neg); Color, Urine Yellow (P-Yellow); Glucose Qualitative, Urine Neg (Neg); Ketones, Urine Neg (Neg); Leukocyte Esterase, Urine 1+ (Neg); Nitrite, Urine Neg (Neg); Protein, Urine 1+ (Neg); Specific Gravity, Urine 1.015 (1.003-1.022); Urobilinogen, Urine NORM (Normal)
[2023-11-10 11:05] LABS: Granular Casts 0-2 /lpf (0)
[2023-11-10 11:06] LABS: Amorphous Mod (0-Heavy); Bacteria Mod /hpf; Red Blood Cells, Urine 0-2 /hpf (0-2); Squamous Epithelial Cells Rare /hpf (Few); White Blood Cells, Urine 0-2 /hpf (0-5)
[2023-11-10] MEDS ORDERED: HYDROmorphone HCl/Pf 1MG SYR IV PRN (16:00)
[2023-11-10] MEDS ORDERED: Acetaminophen 650 MG Supp PR PRN (16:00)
[2023-11-10 17:37] LABS: Vancomycin, Trough 23.4 ug/mL (5.0-10.0)
--- NOTE | 2023-11-10 17:46 | NUR ---
SHIFT SUMMARY.... PT WAS MEDICATED FOR PAIN PER EMAR, SHE HAS HAD INCREASED CONFUSION T/O THIS SHIFT PAIN MEDICATION ORDERS WERE CHANGED PER DR. CURTIS. PT WAS ON THE BIPAP MOST OF THIS SHIFT D/T INCREASED WORK OF BREATHING AND WHEEZING. A TEMP HUERTAS WAS PLACED PER ORDERS D/T RETENTION >1000MLS DRAINED WHEN THE HUERTAS WAS PLACED, UA SENT TO THE LAB. PT'S TMAX THIS SHIFT WAS 102.3, PT WAS GIVEN TYLENOL WITH GOOD RESULTS. PT DID NOT HAVE A BM THIS SHIFT. WILL CONTINUE TO MONITOR UNTIL REPORT IS GIVEN TO ONCOMING RN.
[2023-11-10] MEDS ORDERED: Vancomycin HCL 1,000 MG in NS 100 ML IV SCH (18:00)
--- NOTE | 2023-11-10 19:39 | NUR ---
ASSUMED CARE OF PATIENT AT 1900. REPORT RECEIVED FROM SUJEY BENITEZ. PT RESTING IN BED, ON BIPAP WITH SETTINGS OF 12/8 AND 70%. O2 SATURATION IN 90'S. LR INFUSING. REPOSITIONED TO R SIDE PER PT REQUEST. HUERTAS PATENT AND DRAINING TO GRAVITY. NO ACUTE NEEDS IDENTIFIED AT THIS TIME. SEE SHIFT ASSESSMENT FOR FULL DETAILS.
[2023-11-11] VITALS (31 sets, daily range): BP systolic 101–186; BP diastolic 55–160
--- NOTE | 2023-11-11 06:12 | NUR ---
SHIFT SUMMARY PT REMAINED A&O X 4 T/O ENTIRETY OF SHIFT. ABLE TO FOLLOW COMMANDS, MAKE PURPOSEFUL MOVEMENTS, AND MAKE NEEDS KNOWN. DENIED PAIN T/O SHIFT. CONTINUOUS CARDIAC MONITORING IN PLACE SHOWING SINUS RHYTHM WITH HR IN 80'S-90'S. SBP IN 100'S-130'S. NO BM THIS SHIFT. DECREASED APPETITE. TOLERATES SIPS OF WATER WELL. TEMP HUERTAS IN PLACE DRAINING DARK YELLOW URINE TO GRAVITY. LR INFUSING AT 100mL/HR, TKO INFUSING. WILL CONTINUE TO MONITOR AND REPORT TO ONCOMING RN.
[2023-11-11 08:11] LABS: Calcium, Blood 8.2 mg/dL (8.5-10.1); Creatinine, Blood 3.46 mg/dL (0.40-1.00); Potassium, Blood 4.1 mmol/L (3.5-5.5)
[2023-11-11 09:52] LABS: BASOPHILS ABSOLUTE AUTO 0.05 K/mm3 (0.00-0.23); BASOPHILS PERCENT AUTO 0 % (0-2); EOSINOPHILS ABSOLUTE AUTO 0.22 K/mm3 (0.00-0.68); EOSINOPHILS PERCENT AUTO 1 % (0-6); Hematocrit 28.1 % (33.0-51.0); Hemoglobin 9.2 g/dL (11.5-16.0); IMMATURE GRAN ABSOLUTE AUTO 0.24 K/mm3 (0.00-0.10); IMMATURE GRAN PERCENT AUTO 1 % (0-1); LYMPHOCYTES ABSOLUTE AUTO 0.95 K/mm3 (0.84-5.20); LYMPHOCYTES PERCENT AUTO 6 % (21-46); MONOCYTES ABSOLUTE AUTO 1.82 K/mm3 (0.16-1.47); MONOCYTES PERCENT AUTO 11 % (4-13); Mean Corpuscular HGB 31.1 pg (26.0-34.0); Mean Corpuscular HGB Conc 32.7 g/dL (31.5-36.5); Mean Corpuscular Volume 95 fL (80-100); Mean Platelet Volume 9.1 fL (9.1-12.4); NEUTROPHILS PERCENT AUTO 81 % (41-73); Platelet Count 456 K/mm3 (150-400); RDW Coefficient Variation 14.6 % (11.7-14.2); RDW Standard Deviation 51.5 fL (35.1-46.3); Red Blood Cell Count 2.96 M/mm3 (3.80-5.20); White Blood Cell Count 16.98 K/mm3 (4.00-11.30)
--- NOTE | 2023-11-11 10:12 | NUR ---
AM NOTE... ASSUMED CARE OF PT AT 0700, PT IS A&O x2 AT THE TIME OF THIS ASSESSMENT. PT IS ON AIRVO AT 60L AND 90%, BIPAP AT TIMES AT 14/8 AND 70% WITH O2 SATS>90% L/S DIM T/O WITH SOME WHEEZES IN THE UPPER LOBES. PT'S RR IS IN THE 20'S AND PT BECOMES DYSPNEIC WITH TALKING AND MOVING. PT IS IN SR/ST 90'S-100'S BP IS STABLE. SHE HAS 2+ EDEMA NOTED TO HER BLE. BT PRESENT AND HYPOACTIVE, ABD IS SOFT AND NONTENDER TO PALPATION, PT DOES C/O OF RIGHT SIDED FLANK/RIB PAIN WITH COUGHING. TEMP HUERTAS IS PATENT AND DRAINING YELLOW URINE TO GRAVITY. PT'S TEMP IS 100.0 THIS AM. CALL LIGHT IN REACH WILL CONTINUE TO MONITOR.
[2023-11-11 10:29] LABS: PCO2 Arterial 38.4 mmHg (35-45); PO2 Arterial 67.4 mmHg (80-100); pH Blood Arterial 7.33 (7.35-7.45)
[2023-11-11 10:32] LABS: Magnesium, Blood 1.8 mg/dL (1.6-2.4); Phosphorus, Blood 4.8 mg/dL (2.5-4.9)
[2023-11-11] MEDS ORDERED: FentaNYL Citrate 50 MCG/ML 2 ML Injection ONE (12:26)
[2023-11-11] MEDS ORDERED: FentaNYL Citrate 50 MCG/ML 2 ML Injection IV ONE (12:30)
[2023-11-11] MEDS ORDERED: propofoL 100 ML IV SCH (12:30)
[2023-11-11 13:50] LABS: PCO2 Arterial 35.3 mmHg (35-45); pH Blood Arterial 7.33 (7.35-7.45)
[2023-11-11] MEDS ORDERED: Piperacillin/Tazobactam Sod 3.375 GM in NS 100 ML IV ONE (13:50)
[2023-11-11 13:51] LABS: PO2 Arterial 67.2 mmHg (80-100)
--- NOTE | 2023-11-11 14:05 | NUR ---
PATIENT INTUBATION... AT APPROXIMATELY 1225 ORAL CARE PROVIDED TO THE PT WHILE SHE WAS ON BIPAP. PATIENT STARTED TO DESATURATE DOWN TO THE 70'S. BIPAP SETTINGS WERE 14/8 80%. FIO2 WAS INCREASED TO 100% DURING THIS TIME, PATIENT STILL DID NOT RECOVER. PROVIDER NOTIFIED, DECISION TO INTUBATE AT THIS TIME WAS MADE. FAMILY ESCORTED OUT OF THE ROOM. 1234: PATIENT WAS GIVEN 20 OF ETOMIDATE AND 70 OF AMINA 1235: ET TUBE ADVACNED 8.0 25 AT THE LIP 1236: POSITIVE END TIDAL, BILATERAL BREATH SOUNDS HEARD. PT VITAL SIGNS STABLE THROUGHOUT THIS EVENT. OG TUBE PLACED. XRAY IN THE ROOM TO VERIFY PLACEMENT. PROVIDER ASSESSED CHEST XR, ET TUBE PULLED OUT 2 CM PER VERBAL ORDER. CURRENT ET TUBE PLACEMENT IS 23 AT THE LIP. VENTILATOR SETTINGS AT AC/VC 28/300/10 80%. FIO2 WAS INCREASED TO 90% DUE TO O2 SATS IN THE HIGH 80'S.
[2023-11-11] MEDS ORDERED: D5W-1/2NS 1,000 ML IV SCH (16:20)
[2023-11-11] MEDS ORDERED: Rocuronium Bromide 10 MG/ML 5ML Injection IV ONE (17:11)
--- NOTE | 2023-11-11 17:29 | NUR ---
PT TRANSFER.... PT WAS TAKEN TO [facility] AT 1630, REPORT WAS CALLED TO EXAMINATION SCORER IN THE CCU. ALL OF PTS BELONGINGS LEFT IN THE ROOM WERE TAKEN BY HER FRIEND BENNETT TO GIVE HER HER SISTER ANT. PT'S VS STABLE A THE TIME OF TRANSFER. PT'S SISTER ANT WAS AT THE UNIT WHEN THE PT LEFT, SHE WAS FULLY UPDATED ON THE PT'S CONDITION AND PLAN OF CARE.
[2023-11-11] MEDS ORDERED: Piperacillin/Tazobactam Sod 3.375 GM in NS 100 ML IV SCH (21:00)
== END 2023-11-11 16:43 | disposition short-term general hospital (02) | DRG 871 ==
LOC: ER 16:39 → PCU 22:06 → ICUE 22:06 → PCU 11-08 01:37 → ICUE 11-08 14:48
PROVIDERS: Emergency Medicine; Internal Medicine; Internal Medicine Critical Care Medicine; Student in an Organized Health Care Education/Training Program; ADMIT Student in an Organized Health Care Education/Training Program
PROC: 3E03329 Introduction of Other Anti-infective into Peripheral Vein, Percutaneous Approach (ICD-10-PCS; 2023-11-07)
PROC: 0W9930Z Drainage of Right Pleural Cavity with Drainage Device, Percutaneous Approach (ICD-10-PCS; 2023-11-08)
PROC: 5A09457 Assistance with Respiratory Ventilation, 24-96 Consecutive Hours, Continuous Positive Airway Pressure (ICD-10-PCS; 2023-11-09)
PROC: 5A0935A Assistance with Respiratory Ventilation, Less than 24 Consecutive Hours, High Flow/Velocity Cannula (ICD-10-PCS; principal; 2023-11-11)
PROC: 0BH17EZ Insertion of Endotracheal Airway into Trachea, Via Natural or Artificial Opening (ICD-10-PCS; 2023-11-11)
PROC: 5A1935Z Respiratory Ventilation, Less than 24 Consecutive Hours (ICD-10-PCS; 2023-11-11)
DX: A41.9 Sepsis, unspecified organism (principal); J18.9 Pneumonia, unspecified organism; J96.01 Acute respiratory failure with hypoxia; J86.9 Pyothorax without fistula; N17.9 Acute kidney failure, unspecified; J91.8 Pleural effusion in other conditions classified elsewhere; I50.32 Chronic diastolic (congestive) heart failure; E78.5 Hyperlipidemia, unspecified; I11.0 Hypertensive heart disease with heart failure; S81.801A Unspecified open wound, right lower leg, initial encounter; R33.9 Retention of urine, unspecified; E03.9 Hypothyroidism, unspecified; M79.7 Fibromyalgia; Z87.891 Personal history of nicotine dependence; Z90.49 Acquired absence of other specified parts of digestive tract; Z88.8 Allergy status to other drugs, medicaments and biological substances; Z79.890 Hormone replacement therapy; Z79.899 Other long term (current) drug therapy
CPT/HCPCS: 0241U; 31500; 32551; 32555; 36415; 36600; 71045; 71046; 71260; 80048; 80053; 80069; 80202; 81001; 82010; 82042; 82803; 82945; 82947; 83605; 83615; 83735; 83880; 83986; 84100; 84145; 84157; 84443; 84478; 85025; 85027; 85379; 87040; 87070; 87075; 87086; 87205; 89051; 93005; 93010; 94002; 94640; 94660; 94664; 94762; 96361; 96374; 99285-25; A9270; J0456; J0696; J1650; J1940; J2270; J2543; J2704; J3010; J3370; J7030; J7050; J7120; Q9967

== ENCOUNTER → 2023-11-07 | Outpatient (CLI) | payer MEDICARE, OTHER ==
[~2023-11-07] MED LIST changes: -Acerola C500 MG; +Acerola C500 MG PO; -FELODIPINE ER10 M1; +FELODIPINE ER10 M1 PO; -FURO20; +FURO20 PO; +Hair, Skin & N1 EACH PO; -MONT10T; -Multiple Vitam1 EAC1 PO; -OMEGA ESSE1400 MG/5; +OMEGA ESSE1400 MG/5 PO; +OMEP20ER PO; -Omeprazole20 M1; -PRESERVISION A1 EAC2; +PRESERVISION A1 EAC2 PO; -VITAMIN B125000 MC1; +VITAMIN B125000 MC1 PO; -ZINC15; +ZINC15 PO
[2023-11-07 16:11] LABS: BASOPHILS ABSOLUTE AUTO 0.07 K/mm3 (0.00-0.23); BASOPHILS PERCENT AUTO 0 % (0-2); EOSINOPHILS ABSOLUTE AUTO 0.27 K/mm3 (0.00-0.68); EOSINOPHILS PERCENT AUTO 2 % (0-6); Hematocrit 31.8 % (33.0-51.0); Hemoglobin 10.6 g/dL (11.5-16.0); IMMATURE GRAN ABSOLUTE AUTO 0.14 K/mm3 (0.00-0.10); IMMATURE GRAN PERCENT AUTO 1 % (0-1); LYMPHOCYTES ABSOLUTE AUTO 1.66 K/mm3 (0.84-5.20); LYMPHOCYTES PERCENT AUTO 9 % (21-46); MONOCYTES ABSOLUTE AUTO 2.58 K/mm3 (0.16-1.47); MONOCYTES PERCENT AUTO 14 % (4-13); Mean Corpuscular HGB 30.9 pg (26.0-34.0); Mean Corpuscular HGB Conc 33.3 g/dL (31.5-36.5); Mean Corpuscular Volume 93 fL (80-100); Mean Platelet Volume 9.4 fL (9.1-12.4); NEUTROPHILS PERCENT AUTO 74 % (41-73); Platelet Count 379 K/mm3 (150-400); RDW Coefficient Variation 13.8 % (11.7-14.2); RDW Standard Deviation 46.6 fL (35.1-46.3); Red Blood Cell Count 3.43 M/mm3 (3.80-5.20); White Blood Cell Count 18.22 K/mm3 (4.00-11.30)
[2023-11-07 16:22] LABS: Albumin, Blood 2.4 g/dL (3.4-5.0); Albumin/Globulin Ratio 0.5 (0.8-1.8); Bilirubin, Total 0.4 mg/dL (0.1-1.0); Bun/Creatinine Ratio 14.4 (12.0-20.0); Calcium, Blood 8.5 mg/dL (8.5-10.1); Creatinine, Blood 0.9 mg/dL (0.40-1.00); Globulin, Blood 4.6 g/dL (2.2-4.0); Potassium, Blood 3.7 mmol/L (3.5-5.5)
== END | disposition home or self-care (01) ==
LOC: LAB 16:06 → LAB SHORT 16:06
PROVIDERS: Physician Assistant Medical
DX: R09.02 Hypoxemia (principal)
CPT/HCPCS: 80053; 85025

== ENCOUNTER → 2024-11-23 | Outpatient (CLI) | payer MEDICARE, OTHER ==
[2024-11-24 02:42] LABS: Adenovirus F 40/41 Not Detected (NOT DETECT); Astrovirus Not Detected (NOT DETECT); Campylobacter Sp Not Detected (NOT DETECT); Cryptosporidium Not Detected (NOT DETECT); Cyclospora Cayetanensis Not Detected (NOT DETECT); E. Coli O157 Not Detected (NOT DETECT); Entamoeba Histolytica Not Detected (NOT DETECT); Enteroaggregative E. coli-EAEC Not Detected (NOT DETECT); Enteropathogenic E. coli-EPEC Not Detected (NOT DETECT); Enterotoxigenic E. coli-ETEC Not Detected (NOT DETECT); Giardia Lamblia Not Detected (NOT DETECT); Norovirus GI/GII Not Detected (NOT DETECT); Plesiomonas Shigelloides Not Detected (NOT DETECT); Rotavirus A Not Detected (NOT DETECT); Salmonella Sp Not Detected (NOT DETECT); Sapovirus Not Detected (NOT DETECT); Shiga Toxin-prod E. coli-STEC Not Detected (NOT DETECT); Shigella/Enteroin E. coli-EIEC Not Detected (NOT DETECT); Vibrio Cholerae Not Detected (NOT DETECT); Vibrio Sp Not Detected (NOT DETECT); Yersinia Enterocolitica Not Detected (NOT DETECT)
== END ==
LOC: LAB 18:17 → LAB SHORT 18:17
PROVIDERS: Physician Assistant
DX: R19.7 Diarrhea, unspecified (principal)
CPT/HCPCS: 87507

== ENCOUNTER → 2025-01-01 | Outpatient (CLI) | payer MEDICARE, OTHER ==
[2025-01-01 20:38] LABS: Campylobacter Sp Not Detected (NOT DETECT)
[2025-01-01 20:39] LABS: Adenovirus F 40/41 Not Detected (NOT DETECT); Astrovirus Not Detected (NOT DETECT); Cryptosporidium Not Detected (NOT DETECT); Cyclospora Cayetanensis Not Detected (NOT DETECT); E. Coli O157 Not Detected (NOT DETECT); Entamoeba Histolytica Not Detected (NOT DETECT); Enteroaggregative E. coli-EAEC Not Detected (NOT DETECT); Enteropathogenic E. coli-EPEC Not Detected (NOT DETECT); Enterotoxigenic E. coli-ETEC Not Detected (NOT DETECT); Giardia Lamblia Not Detected (NOT DETECT); Norovirus GI/GII Not Detected (NOT DETECT); Plesiomonas Shigelloides Not Detected (NOT DETECT); Rotavirus A Not Detected (NOT DETECT); Salmonella Sp Not Detected (NOT DETECT); Sapovirus Not Detected (NOT DETECT); Shiga Toxin-prod E. coli-STEC Not Detected (NOT DETECT); Shigella/Enteroin E. coli-EIEC Not Detected (NOT DETECT); Vibrio Cholerae Not Detected (NOT DETECT); Vibrio Sp Not Detected (NOT DETECT); Yersinia Enterocolitica Not Detected (NOT DETECT)
== END ==
LOC: LAB SHORT 15:53 → LAB 15:53
PROVIDERS: Internal Medicine
DX: K52.9 Noninfective gastroenteritis and colitis, unspecified (principal)
CPT/HCPCS: 87507

== ENCOUNTER 2025-01-13 07:42 | Emergency (ER) | payer MEDICARE, OTHER ==
[~2025-01-13] VITALS: Ht 154.9 cm; Wt 67.1 kg
[2025-01-13 10:12] LABS: BASOPHILS ABSOLUTE AUTO 0.06 K/mm3 (0.00-0.23); BASOPHILS PERCENT AUTO 1 % (0-2); EOSINOPHILS ABSOLUTE AUTO 0.12 K/mm3 (0.00-0.68); EOSINOPHILS PERCENT AUTO 1 % (0-6); Hematocrit 38.2 % (33.0-51.0); Hemoglobin 12.5 g/dL (11.5-16.0); IMMATURE GRAN ABSOLUTE AUTO 0.04 K/mm3 (0.00-0.10); IMMATURE GRAN PERCENT AUTO 0 % (0-1); LYMPHOCYTES ABSOLUTE AUTO 1.36 K/mm3 (0.84-5.20); LYMPHOCYTES PERCENT AUTO 11 % (21-46); MONOCYTES ABSOLUTE AUTO 0.86 K/mm3 (0.16-1.47); MONOCYTES PERCENT AUTO 7 % (4-13); Mean Corpuscular HGB Conc 32.7 g/dL (31.5-36.5); Mean Corpuscular Volume 85 fL (80-100); NEUTROPHILS ABSOLUTE AUTO 9.51 K/mm3 (1.96-9.15); NEUTROPHILS PERCENT AUTO 80 % (41-73); NRBC ABSOLUTE 0.00 K/mm3 (0.00-0.02); NRBC Auto 0.0 /100 WBC (0.0-0.2); Platelet Count 335 K/mm3 (150-400); RDW Coefficient Variation 14.0 % (11.7-14.2); RDW Standard Deviation 43.2 fL (35.1-46.3)
[2025-01-13 10:35] LABS: Alanine Aminotransfer (ALT/SGP 28.0 U/L (12-78); Albumin, Blood 3.9 g/dL (3.4-5.0); Albumin/Globulin Ratio 0.9 (0.8-1.8); Anion Gap 7.0 mmol/L (3-11); Aspartate Aminotrans (AST/SGOT 34.0 U/L (12-37); Bilirubin, Total 0.4 mg/dL (0.1-1.0); Blood Urea Nitrogen 27.0 mg/dL (8-24); CO2, Blood 27.0 mmol/L (21-32); Calcium, Blood 9.2 mg/dL (8.5-10.1); Chloride, Blood 109.0 mmol/L (98-108); Creatinine, Blood 0.77 mg/dL (0.40-1.00); Globulin, Blood 4.2 g/dL (2.2-4.0); Glucose, Blood 102.0 mg/dL (70-99); Magnesium, Blood 2.0 mg/dL (1.6-2.4); Phosphorus, Blood 2.9 mg/dL (2.5-4.9); Potassium, Blood 4.6 mmol/L (3.5-5.5); Sodium, Blood 138.0 mmol/L (136-145); Total Protein, Blood 8.1 g/dL (6.4-8.2)
[2025-01-13 11:18] LABS: Source, Urine Clean Catch
[2025-01-13] MEDS ORDERED: Mag Sulfate 1 GM/D5% 100ML 100 ML IV ONE (11:30)
[2025-01-13] MEDS ORDERED: CALCIUM GLUC IN NACL, ISO-OSM 50 ML IV ONE (11:30)
[2025-01-13 11:38] LABS: Bilirubin, Urine Neg (Neg); Color, Urine Yellow (P-Yellow); Glucose Qualitative, Urine Neg (Neg); Ketones, Urine Neg (Neg); Leukocyte Esterase, Urine 3+ (Neg); Protein, Urine 1+ (Neg); Specific Gravity, Urine 1.015 (1.003-1.022); Urobilinogen, Urine NORM (Normal)
[2025-01-13 13:05] LABS: Red Blood Cells, Urine 0-2 /hpf (0-2)
[2025-01-13] MEDS ORDERED: Nitrofurantoin/Nitrofuran Mac 100 MG Cap PO ONE (13:55)
[2025-01-13 14:00] VITALS: BP 135/77
[2025-01-13] MEDS ORDERED: NITR100CA PO (14:55)
== END 2025-01-13 15:26 | disposition home or self-care (01) ==
LOC: ER 07:42
PROVIDERS: Physician Assistant
DX: N39.0 Urinary tract infection, site not specified (principal); R53.1 Weakness; I10 Essential (primary) hypertension; E78.5 Hyperlipidemia, unspecified; K21.9 Gastro-esophageal reflux disease without esophagitis; E03.9 Hypothyroidism, unspecified; Z87.891 Personal history of nicotine dependence; Z88.8 Allergy status to other drugs, medicaments and biological substances; Z79.890 Hormone replacement therapy; Z79.899 Other long term (current) drug therapy
CPT/HCPCS: 80053; 81001; 83735; 84100; 85025; 87077; 87086; 87186; 93005; 93010; 96365; 96366; 96367; 99285-25; A9270; J0612; J3475

== ENCOUNTER → 2025-03-13 | Outpatient (CLI) | payer MEDICARE, OTHER ==
[~2025-03-13] MED LIST changes: +NITR100CA PO
== END ==
LOC: LAB SHORT 13:02 → LAB 13:02
DX: R39.9 Unspecified symptoms and signs involving the genitourinary system (principal)
CPT/HCPCS: 87077; 87086; 87186